=== PATIENT | female | born 1985 | race Caucasian/White ===

== ENCOUNTER 2017-09-08 08:00 | Inpatient (IN) | payer OTHER ==
[2017-09-08] VITALS (12 sets, daily range): BP systolic 96–118; BP diastolic 44–65
[~2017-09-08] VITALS: Ht 170.2 cm; Wt 132.4 kg
[~2017-09-08 08:00] MED LIST: ADVAIR DISK1 INH; ALBUTEROL S2.5 MG/.5 IN; ALBUTEROL SUL0.083 % IN; CLARITIN-D1 TA2 PO; PRENATAL1 TA1; PRILOSEC20 MG/CAP PO; QVAR40 MCG IN; SINGULAIR10 MG PO
--- NOTE | 2017-09-08 11:15 | NUR ---
PATIENT ARRIVES ON UNIT FROM HOME IN STABLE CONDITION FOR SCHEDULED SECTION. WEIGHT AND HEIGHT OBTAINED. ESCORTED TO ROOM 209. CLEAN CATCH SPECIMEN OF URINE EXPLAINED AND OBTAINED. GIVEN HIBICLENS TO TAKE SHOWER. EFM COMMENCED. HISTORY NOTED. PATIENT STATES SHE IS AN ASTHMATIC AND USES HER MEDS PRESCRIBED SEVERAL TIMES PER DAY. WILL ASSESS LUNG SOUND AND NOTIFY MD ELLIOTT. 1210 IV ACCESS GAINED IN LEFT HAND ON FIRST ATTEMPT. BLOOD DRAWN VIA SAME. IVB OF LR COMMENCED FOR SURGERY. EQUINE BREEDER AND OR NURSE PRESENT AT BEDSIDE. 1230 SHAVEPREP DONE WITH CLIPPERS. 1252 PREOP MEDS GIVEN PER EMAR. [address] USING STERILE TECHNIQUE. YELLOW URINE RETURNS VIA SAME. PATIENT TOLERATED SAME WELL. 1300 OFF EFM TO GO FOR SURGERY. SEE DELIVERY ROOM RECORD.
[2017-09-08 11:51] LABS: URINE BILIRUBIN - DIPSTICK NEGATIVE (NEGATIVE); URINE CLARITY CLEAR; URINE COLOR YELLOW; URINE GLUCOSE - DIPSTICK NEGATIVE (NEGATIVE); URINE KETONE NEGATIVE (NEGATIVE); URINE NITRITE - DIPSTICK NEGATIVE (Negative); URINE PH 7.5 (4.5-8.0); URINE PROTEIN - DIPSTICK TRACE mg/dL (NEG-TRACE); URINE SPECIFIC GRAVITY 1.015
[2017-09-08 11:54] LABS: URINE LEUK ESTERASE MODERATE (NEGATIVE)
[2017-09-08 11:57] LABS: BARBITURATES NEGATIVE (NEGATIVE); COCAINE NEGATIVE (NEGATIVE); METHADONE NEGATIVE (NEGATIVE); OXCYCODONE NEGATIVE (NEGATIVE); TETRAHYDROCANNABIONOL NEGATIVE (NEGATIVE); TRICYLIC ANTIDEPRESSANTS NEGATIVE (NEGATIVE); URINE BACTERIA RARE hpf; URINE BLOOD DIPSTICK NEGATIVE (NEGATIVE); URINE EPITHELIAL CELLS RARE EPI/hpf (0-FEW); URINE MUCUS FEW hpf (NONE-FEW); URINE RBC 0-2 RBC/hpf (0-5)
[2017-09-08 12:30] LABS: HEMATOCRIT 34.7 % (37.0-47.0); IMMATURE GRANULOCYTES 0.4 % (0.0-1.0); MEAN CELL VOLUME 91.6 fL CALC (80.0-100.0); MEAN CORPUSCULAR HGB 31.7 pG CALC (26.0-32.0); MEAN CORPUSCULAR HGB CONC 34.6 g/L CALC (32.0-36.0); NEUT# 8.04 thou/uL (2.00-7.15); RED BLOOD COUNT 3.79 mill/uL (4.20-5.60); RED CELL DISTRI WIDTH 13.2 % (11.5-15.5)
[2017-09-08 12:52] LABS: ALBUMIN 3.1 g/dL (3.2-5.0); ALKALINE PHOSPHATASE 170 u/l (38-126); ANION GAP 10 (6-22 (CALC)); BILIRUBIN, TOTAL 0.7 mg/dL (0.0-1.4); BUN 8 mg/dL (7-17); BUN/CREATININE RATIO 13 (12-20 (CALC)); CALCULATED LDLCHOLESTEROL 109 mg/dL (62-129 (CALC)); CARBON DIOXIDE 23 mmol/l (22-30); CHLORIDE 106 mmol/l (95-108); CHOLESTEROL HDL RATIO 3.9 (<4.4 (CALC)); CREATININE 0.7 mg/dL (0.5-1.0); GFR > 60 ML/MIN (>=60 (CALC)); GFR FOR AFR.AMER. > 60 ML/MIN (>=60 (CALC)); GLUCOSE 88 mg/dL (65-105); HDL CHOLESTEROL 58 mg/dL (>=40); SGOT/AST 39 u/l (14-36); SGPT/ALT 41 u/l (9-52); SODIUM 135 mmol/l (137-146); TOTAL CHOLESTEROL 226 mg/dl (0-199); TOTAL PROTEIN 6.3 g/dL (6.3-8.2); TOTAL TRIGLYCERIDES 294 mg/dl (30-149); VLDL CHOLESTROL 59 mg/dl (1-41 (CALC))
--- NOTE | 2017-09-08 15:57 | NUR ---
PATIENT TO ROOM FROM PACU ON FLAVIA ACCOMPANIED BY OR NURSE. AWAKE AND ALERT. TRANSFERRED TO BED USING Z SLIDER. PERICARE DONE. MADE COMFORTABLE. POSTOP INSTRUCTIONS REVIEWED. PATIENT VERBALISE UNDERSTANDING OF SAME. SAFETY MEASURES ALSO REVIEWED. IVF AND SCDS IN PLACE. WILL CONTINUE TO MONITOR.
--- NOTE | 2017-09-08 16:38 | NUR ---
IN ROOM WITH FAMILY. MEDICATED FOR PAIN REQUESTED. SHADOWING ON DRESSING. TOLERATING CLEAR LIQUIDS.
--- NOTE | 2017-09-08 16:40 | NUR ---
RT THOR MARQUEZ NOTIFIED OF PATIENT IN NEED FOR RESPIRATORY CONSULTATION FOR BRONCHIAL ASTHMA AND FOR INCENTIVE SPIROMETER. WILL COME.
--- NOTE | 2017-09-08 18:49 | NUR ---
IN ROOM WITH INFANT. WANTS TAKEN TO NURSERY SO SHE COULD REST. INFANTS NURSE INFORMED. TOOK AND TOLERATING DIET. NO OTHER CONCERNS AT THIS TIME. END OF SHIFT REPORT READY.
--- NOTE | 2017-09-08 19:30 | NUR ---
PT AWAKE AND ALERT, RESTING IN BED, RECEIVING ORDERED NEBULIZER TREATMENT AT THIS TIME, AFTER THIS COMPLETED- ASSESSMENT DONE- SEE FLOWSHEET, PREET CARE DONE, PT REPOSITIONED SELF IN BED FOR COMFORT, DENIES ANY FURTHER NEEDS AT THIS TIME, ENCOURAGED TO CALL NURSE FOR ANY NEEDS OR CONCERNS- VERBALIZES UNDERSTANDING.
[2017-09-08 19:33] LABS: HEMATOCRIT 32.6 % (37.0-47.0); HEMOGLOBIN 11.4 g/dl (12.0-16.0); IMMATURE GRANULOCYTES 0.4 % (0.0-1.0); MEAN CELL VOLUME 91.6 fL CALC (80.0-100.0); NEUT# 9.34 thou/uL (2.00-7.15); RED BLOOD COUNT 3.56 mill/uL (4.20-5.60); RED CELL DISTRI WIDTH 13.2 % (11.5-15.5)
--- NOTE | 2017-09-09 00:40 | NUR ---
PT AWAKE AND ALERT, RESTING IN BED, HOLDING INFANT, PT C/O PAIN- MEDICATED ORDERED, PT ALSO REQUESTING A NEBULIZER TREATMENT- RESPIRATORY THERAPY PAGED, PT DENIES ANY OTHER NEEDS, WILL CONT TO MONITOR.
[2017-09-09 02:00] VITALS: BP 95/55
[2017-09-09 06:00] VITALS: BP 103/59
--- NOTE | 2017-09-09 06:00 | NUR ---
PT AWAKE AND ALERT, VSS, DANGLED AT BEDSIDE, PT THEN ASSISTED UP OOB TO BR- TOLERATED WELL, PT ABLE TO VOID W/OUT DIFFICULTY POST ATKINS REMOVAL, PT AMBULATED INDEPENDENTLY IN RM W/OUT DIFFICULTY, REQUESTING A "BREATHING TREATMENT"- WILL PAGE RT FOR NEB TX, PT REENCOURAGED TO CALL NURSE FOR ANY NEEDS OR CONCERNS.
[2017-09-09 07:15] VITALS: BP 100/54
--- NOTE | 2017-09-09 08:40 | NUR ---
DR. MORELOS IN TO SEE PATIENT. NEW ORDERS RECEIVED. PT MEDICATED FOR PAIN PER EMAR. AGAIN WENT OVER INCENTIVE SPIROMETRY WITH PATIENT, ENCOURAGED TO USE EVERY HOUR, ESPECIALLY DUE TO ASTHMA/SMOKER. FAMILY AT BEDSIDE. DISCUSSED DIET WITH PATIENT, ADVISED TO GET UP AND MOVE MORE TO HELP WITH PAIN AND BOWELS. WILL CONTINUE TO MONITOR. CALL LIGHT IN REACH.
--- NOTE | 2017-09-09 09:25 | NUR ---
SHIFT REPORT RECEIVED. PT SITTING UP IN BED, ALERT AND ORIENTED. RATES PAIN 6/10. MORPHINE PUMP RUNNING, VERIFIED BY BOTH RN'S. BED IN LOW POSITION, CALL LIGHT IN REACH. ENCOURAGED FLUIDS AND INCENTIVE SPIROMETRY. POC GIVEN TO PATIENT. DENIES NEEDS AT THIS TIME.
--- NOTE | 2017-09-09 10:13 | NUR ---
PHARMACY NOTIFIED QVAR INHALER IS NON FORMULARY. SPOKE TO PATIENT ABOUT BRINGING FROM HOME. PT STATES, SHE DOES NOT NEED THAT ONE. SHE NEEDS ALBUTEROL INHALER SHE USES ALONG WITH NEBULIZER TREATMENTS. CALL TO DR. MORELOS FOR APPROVAL, APPROVED. CALL TO PHARMACY TO CONFIRM IT IS WELL ON MED REC FORM. [facility] STATES WILL TAKE CARE OF GETTING IT TO US. PT NOTIFIED AND VOICED APPROVAL.
--- NOTE | 2017-09-09 11:30 | NUR ---
Received report from Shoaib Cid RN. Pt sitting up in bed with family at bedside. Lungs with wheezing bilaterally. Pt instructed to use incentive spirometer 10 times each hour while awake. Pt states she has been using it. Family at bedside. Bowel sounds active. Pt encouraged to continue full liquids at lunch. Encouraged to ambulate in hallway. Dressing with marked drainage. Instructed pt to remove in shower later today after letting it soak through. Call light within reach.
--- NOTE | 2017-09-09 12:00 | NUR ---
Uriel Infante, RT here to give pt nebulizer treatment. T[employer] PROPRIETOR stopped. Pt alert, drowsy. Family at bediside.
--- NOTE | 2017-09-09 12:35 | NUR ---
Medicated for pain with Lortab po. Pt denies s/s of post- depression. However, pt states she has had depression in the past and during this . Pt instructed to follow-up with Dr Ponce after discharge to evaluate depression and need to resume anti-depressive medication. Pt scoring 0 on [place] Depression Scale. Will continue to monitor.
--- NOTE | 2017-09-09 13:41 | NUR ---
Pt requesting ice packs. Instructed to get up to ambulate. Pt states she will get up.
--- NOTE | 2017-09-09 15:56 | NUR ---
Pt sitting up in chair at bedside. certificate electronically signed. Shower set up. Pt up to shower, instructed to remove dressing once soaked. Pt to pull call [place] for assistance. Family at bedside.
--- NOTE | 2017-09-09 16:00 | NUR ---
Dr Moreau in to assess pt, received new orders.
--- NOTE | 2017-09-09 16:20 | NUR ---
Pt ambulating in hallway at this time. Requesting pain medication.
--- NOTE | 2017-09-09 16:25 | NUR ---
Lortab PO given. Pt sitting up in chair at bedside.
[2017-09-09 16:30] VITALS: BP 112/58
--- NOTE | 2017-09-09 17:50 | NUR ---
Pt verbalizes pain relief with Lortab. Encouraged to watch discharge videos and review discharge planning. Family at bedside.
--- NOTE | 2017-09-09 18:08 | NUR ---
Uriel Infante,RT here to administer nebulizer treatment at bedside.
--- NOTE | 2017-09-09 18:41 | NUR ---
Pt in shower at this time. Significant other at side. Call light within reach. Report ready for oncoming shift.
--- NOTE | 2017-09-09 19:15 | NUR ---
PT AWAKE AND ALERT- RESTING IN BED, SIGNIFICANT OTHER AT BEDSIDE, PT ASSESSMENT DONE- SEE FLOWSHEET, PT REQUESTING INHALER AT THIS TIME- ADMINISTERED ORDERED, PT DENIES ANY OTHER CONCERNS AT THIS TIME, PT AND S.O. ENCOURAGED TO CALL NURSE FOR ANY NEEDS OR CONCERNS- BOTH VERBALIZE UNDERSTANDING.
[2017-09-09 20:10] VITALS: BP 109/58
--- NOTE | 2017-09-09 23:00 | NUR ---
PT AWAKE, RESTING QUIETLY IN BED, SIGNIFICANT OTHER AT BEDSIDE, PT C/O PAIN- MEDICATED ORDERED, DENIES ANY OTHER NEEDS AT THIS TIME, WILL CONT TO MONITOR.
[2017-09-10 04:00] VITALS: BP 100/52
--- NOTE | 2017-09-10 05:30 | NUR ---
PT AWAKE AND ALERT, RESTING IN BED, PT C/O PAIN- MEDICATED ORDERED, DENIES ANY OTHER CONCERNS, PT REENCOURAGED TO CALL NURSE FOR ANY NEEDS OR CONCERNS.
--- NOTE | 2017-09-10 07:30 | NUR ---
PT SITS IN CHAIR, SERVED BREAKFAST, PT HAD O2 VIA NC AT 2LPM, REMOVED FOR MEAL, PT IN NO RESP DISTRESS, STATES SHE USED IT BECAUSE SHE HAS SLEEP APNEA AND IT HELPS.
--- NOTE | 2017-09-10 09:00 | NUR ---
PT ASKS FOR BREATHING RX, NO RESP DISTRESS. WHEEZING HEARD, PT STATES SHE IS ALWAYS WHEEZING.
--- NOTE | 2017-09-10 09:15 | NUR ---
DR ROSS IN TO SEE PT, DISCHARGE PLANNED FOR TOMORROW. PT STATES SHE WANTS TO GO HOME, STATES SHE WILL BE ALLRIGHT, HAS HELP AT HOME. STATES TO HER YOU HAVE WHEEZING, HAVE NOT HAD BM YET, AND NOT MOVING ENOUGH. PT STATES SHE IS ALWAYS WHEEZING, THAT WON'T CHANGE, I WANT TO GO HOME. PT REITERATES SHE WANTS TO GO HOME.
--- NOTE | 2017-09-10 09:40 | NUR ---
DISCUSSED PLAN OF CARE WITH PT WHEN SHE GOES HOME, SMOKING CESSATION, ACTIVITY, PREVENTING DVT. PT ACKNOWLEDGES UNDERSTANDING. PT SIT IN CHAIR NO RESP DISTRESS IN ROOM AIR.
[2017-09-10] MEDS ORDERED: NORCO1 TA1 PO (09:49)
[2017-09-10] MEDS ORDERED: PERICOLACE PO (10:08)
--- NOTE | 2017-09-10 10:25 | NUR ---
Discharge instructions given and reviewed. Pt. verbalizes understanding. Discharged in good condition via Wheelchair to Home with in carseat accompanied by family escorted by auxiliary person.
== END 2017-09-10 10:25 | disposition home or self-care (01) | DRG 766 ==
LOC: OB 11:02
PROC: 10D00Z0 Extraction of Products of Conception, High, Open Approach (ICD-10-PCS; principal; 2017-09-08)
PROC: 0UB70ZZ Excision of Bilateral Fallopian Tubes, Open Approach (ICD-10-PCS; 2017-09-08)
DX: O34.212 Maternal care for vertical scar from previous cesarean delivery (principal); O64.0XX0 Obstructed labor due to incomplete rotation of fetal head, not applicable or unspecified; F17.210 Nicotine dependence, cigarettes, uncomplicated; O99.334 Smoking (tobacco) complicating childbirth; N85.8 Other specified noninflammatory disorders of uterus; O99.52 Diseases of the respiratory system complicating childbirth; J45.909 Unspecified asthma, uncomplicated; O69.0XX0 Labor and delivery complicated by prolapse of cord, not applicable or unspecified; Z3A.39 39 weeks gestation of pregnancy; Z37.0 Single live birth